=== PATIENT | male | born 1965 | race Caucasian/White ===

== ENCOUNTER 2022-01-14 11:17 | Emergency (ER) | payer SELFPAY ==
[~2022-01-14] VITALS: Ht 172.7 cm; Wt 91.0 kg
[2022-01-14 13:52] VITALS: BP 110/60
== END 2022-01-14 18:17 | disposition home or self-care (01) ==
LOC: ER 11:17 → EDBD 11:17 → ER 18:17
DX: F10.129 Alcohol abuse with intoxication, unspecified (principal); Y90.9 Presence of alcohol in blood, level not specified
CPT/HCPCS: 99283

== ENCOUNTER 2022-07-27 13:38 | Emergency (ER) | payer MEDICAID, OTHER ==
[~2022-07-27] VITALS: Ht 162.6 cm; Wt 100.0 kg
[2022-07-27 13:41] VITALS: BP 127/62
[2022-07-27] MEDS ORDERED: SODIUM CHLORIDE 0.9% 1,000 ML IV ONE (14:15)
[2022-07-27 14:56] LABS: CHLORIDE 107 mEq/L (98-107)
[2022-07-27 14:57] LABS: BASOPHILS % 0.9 % (0.0-2.0); EOSINOPHILS % 0.1 % (0.0-5.0); HEMATOCRIT. 46.6 % (42.0-52.0); HEMOGLOBIN. 15.4 g/dL (14.0-18.0); LYMPHOCYTES % 33.5 % (20.0-50.0); MEAN CORPUSCULAR VOLUME 87.8 fL (80.0-94.0); MEAN PLATELET VOLUME 7.8 fl (7.4-10.4); MONOCYTES % 6.9 % (2.0-8.0); NEUTROPHILS % 58.6 % (40.0-76.0); PLATELET 218 x1000/uL (130-400); RED CELL DISTRIBUTION WIDTH 15.5 % (11.6-14.6)
[2022-07-27 15:07] LABS: ETHANOL BLOOD 273 mg/dL
== END 2022-07-27 18:51 | disposition home or self-care (01) ==
LOC: ER 13:38
DX: F10.129 Alcohol abuse with intoxication, unspecified (principal); Y90.8 Blood alcohol level of 240 mg/100 ml or more; R79.89 Other specified abnormal findings of blood chemistry
CPT/HCPCS: 36415; 80053; 80320; 85025; 96360; 96361; 99283; J7030; Z7610; G0480